=== PATIENT | female | born 1950 | race Caucasian/White ===

== ENCOUNTER → 2023-04-13 | Outpatient (REF) | payer MEDICARE ==
[~2023-04-13] MED LIST: AMOX875T2 PO; BUSP5TA PO; CARV25TA PO; CHLO125TA PO; DILT120C89 PO; ELIQ5TAB PO; FLEC25TA PO; KETO2CR PO; LEVO25TA5 PO; LISI20TA33 PO; PRAV80TA2 PO; ZOLO100T PO
== END ==
LOC: M SFHCCLAY 09:21
PROVIDERS: ATTEND Family Medicine
DX: Z53.9 Procedure and treatment not carried out, unspecified reason (principal)

== ENCOUNTER → 2023-12-11 | Outpatient (REF) | payer MEDICARE ==
[2023-12-11 11:20] LABS: HEMATOCRIT 31.5 % (36.0-47.0); HEMOGLOBIN 9.8 g/dl (12.0-15.5); MEAN CORPUSCULAR HEMOGLOBIN 24.6 pg (27.0-33.0); MEAN CORPUSCULAR HGB CONC 31.1 g/dl (32.0-36.5); MEAN CORPUSCULAR VOLUME 79.1 fl (80.0-96.0); PLATELET COUNT, AUTOMATED 406 10^3/uL (150-450); RED BLOOD COUNT 3.98 10^6/uL (4.00-5.40); WHITE BLOOD COUNT 6.9 10^3/uL (4.0-10.0)
[2023-12-11 11:34] LABS: HEMOGLOBIN A1c 4.8 % (4.0-6.0)
[2023-12-11 11:45] LABS: ALBUMIN 3.6 G/DL (3.2-5.2); ALKALINE PHOSPHATASE 117 U/L (46-116); ALT/SGPT 21 U/L (7.0-40); AST/SGOT 16 U/L (<34); BILIRUBIN,TOTAL 0.4 MG/DL (0.3-1.2); BLOOD UREA NITROGEN 23 MG/DL (9-23); CALCIUM LEVEL 9.4 MG/DL (8.3-10.6); CARBON DIOXIDE LEVEL 27 MMOL/L (20-31); CHLORIDE LEVEL 96 MMOL/L (98-107); CHOLESTEROL LEVEL 150 MG/DL (<200); CHOLESTEROL RISK RATIO 4.09 (<5); CREATININE FOR GFR 0.78 MG/DL (0.55-1.30); GLOMERULAR FILTRATION RATE > 60.0 (>39); GLUCOSE, FASTING 97 MG/DL (74-106); HDL CHOLESTEROL 36.6 MG/DL (>40); LDL CHOLESTEROL 83.8 MG/DL (<100); NON-HDL-C 113.4 MG/DL; POTASSIUM SERUM 4.6 MMOL/L (3.5-5.1); SODIUM LEVEL 129 MMOL/L (136-145); TOTAL PROTEIN 6.9 G/DL (5.7-8.2); TRIGLYCERIDES LEVEL 148 MG/DL (<150)
[2023-12-11 11:46] LABS: FREE T4 1.46 NG/DL (0.89-1.76)
[2023-12-11 11:47] LABS: THYROID STIMULATING HORMONE 1.105 uIU/ML (0.55-4.78)
== END ==
LOC: M SFHCCLAY 08:18
PROVIDERS: ATTEND Family Medicine
DX: R63.4 Abnormal weight loss (principal); I11.0 Hypertensive heart disease with heart failure; Z79.899 Other long term (current) drug therapy

== ENCOUNTER → 2024-06-23 | Outpatient (REF) | payer MEDICARE ==
[2024-06-23 11:41] LABS: THYROID STIMULATING HORMONE 1.324 uIU/ML (0.55-4.78)
[2024-06-23 11:43] LABS: FREE T4 1.31 NG/DL (0.89-1.76)
== END ==
LOC: M SFHCCLAY 09:28
PROVIDERS: ATTEND Family Medicine
DX: E03.9 Hypothyroidism, unspecified (principal)

== ENCOUNTER → 2025-04-24 | Outpatient (REF) | payer MEDICARE ==
[~2025-04-24] MED LIST changes: -PRAV80TA2 PO; +PRAV80TA75 PO
[2025-04-24 15:19] LABS: BASO # 0.1 10^3/uL (0.0-0.2); BASO % 0.6 % (0.0-1.0); EOS # 0.1 10^3/uL (0.0-0.5); EOS % 0.7 % (0.0-3.0); LYMPH # 0.9 10^3/uL (1.5-5.0); LYMPH % 10.6 % (24.0-44.0); MONO # 0.5 10^3/uL (0.0-0.8); MONO % 6.0 % (2.0-8.0); NEUTROPHILS # 6.7 10^3/uL (1.5-8.5); NEUTROPHILS % 81.6 % (36.0-66.0); PLATELET COUNT, AUTOMATED 479 10^3/uL (150-450)
[2025-04-24 15:38] LABS: C REACTIVE PROTEIN QUANTITATIV 4.04 MG/DL (<1.0)
[2025-04-24 15:39] LABS: ALT/SGPT 13 U/L (7.0-40); AST/SGOT 17 U/L (<34); CALCIUM LEVEL 9.1 MG/DL (8.3-10.6); CARBON DIOXIDE LEVEL 27 MMOL/L (20-31); CHLORIDE LEVEL 98 MMOL/L (98-107); CREATININE FOR GFR 0.62 MG/DL (0.55-1.30); GLOMERULAR FILTRATION RATE > 90.0 (>39); IRON (FE) 20 UG/DL (50-170); POTASSIUM SERUM 4.6 MMOL/L (3.5-5.1); SODIUM LEVEL 137 MMOL/L (136-145)
[2025-04-24 15:41] LABS: FREE T4 1.37 NG/DL (0.89-1.76)
== END ==
LOC: M SFHCCLAY 09:21
PROVIDERS: ATTEND Family Medicine
DX: R10.9 Unspecified abdominal pain (principal); I10 Essential (primary) hypertension; E03.9 Hypothyroidism, unspecified; D64.9 Anemia, unspecified